=== PATIENT | female | born 1970 ===

== ENCOUNTER 2019-01-26 09:32 | Outpatient (CLI) | payer OTHER ==
[~2019-01-26] VITALS: Ht 160 cm; Wt 61.2 kg
== END 2019-01-26 09:45 | disposition home or self-care (01) ==
LOC: OFIC 805 09:32
DX: H91.8X2 Other specified hearing loss, left ear (principal); H92.12 Otorrhea, left ear; H71.02 Cholesteatoma of attic, left ear